=== PATIENT | female | born 1940 | race Caucasian/White ===

== ENCOUNTER 2017-09-17 12:10 | Observation (INO) | payer MEDICARE, SELFPAY ==
[2017-09-17] VITALS (12 sets, daily range): BP systolic 113–155; BP diastolic 55–91; PULSE 69–92; RESP 16–18; TEMP 36.2–37.4; O2SAT 88–99; BMI 42.4
--- NOTE | 2017-09-17 | THYROID_PTH ---
PATIENT: PAULINO JASON LOC: MS3 U#:[id number] AGE/SX: 77/F ROOM: [facility] [place] RE09/17/[address]: Dr. Jesu Tanner MD : 1940 BED: 1 DIS: 09/18/2017 SPEC #: [id number] RECD: 09/17/17 11:02 STATUS: DALIA REShruthi #: [id number] HOOD: 09/17/17 00:[address]: Jesu Tanner DEPT: SURGICAL PATHOLOGY RECD BY: Pia Mccartney ENTERED: 09/17/17 12:08 SP TYPE: THYROID OTHR DR: Out of Town Doctor Tissues: A - Thyroid gland, NOS B - Thyroid gland, NOS Procedures: Gen Path Consultation (on slides) Frozen Section (charge) Surgery Specimen Level V HEADER OPERATION: Completion thyroidectomy including substernal component PRE-OP DIAGNOSIS: Multinodular goiter TISSUE SUBMITTED: A ? Right thyroid lobe including substernal component sent for FS, B ? Left thyroid lobe FROZEN SECTION DIAGNOSIS A. Right thyroid, lobectomy: Colloid nodules with focal adenomatoid change. AM:juanita 09/17/17 Case has been reviewed in consultation with Dr. Fonseca who concurs with the above diagnosis. IDC:LYNDSEY MICROSCOPIC DIAGNOSIS A. Right thyroid, lobectomy: Colloid nodules (4 cm in greatest dimension). 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 B. Left thyroid lobe, lobectomy: Colloid nodules (4 cm in greatest dimension). Parathyroid tissue fragments (8 mm in greatest dimension). AM: 09/24/17 COMMENT A. This case was seen in consultation with Dr. Andrei Bill of [email or web address] who concurs with the above diagnosis. Thyroid tissue sections show well circumscribed follicular neoplasm with nuclear enlargement, crowding, elongation, irregular contours and grooves. There is no evidence of capsular or vascular invasion. The recommended management of this neoplasm is conservative and believed that tumor excision is sufficient. The neoplasm is circumscribed and does not invade the pseudocapsule surrounding it. The complete consultative report is viewable in patient?s EMR. B. Two microscopic foci and one macroscopic focus of parathyroid tissue are identified in the sections of the left thyroid lobe. Clinical correlation is suggested. Case has been reviewed in consultation with Dr. Fonseca who concurs with the above diagnosis. IDC:LYNDSEY MICROSCOPIC DESCRIPTION Slides are reviewed. GROSS DESCRIPTION A - Received fresh for frozen section consultation labeled with the patient's name is a specimen designated right thyroid lobe including substernal component. The specimen consists of three irregular fragments of rubbery light camacho to reddish-camacho soft tissue. The fragments in aggregate weigh 106.4 gm. One of the mechanical research engineer camacho lobulated fragments measure 6.5 x 4.5 x 2.5 cm and is inked in red ink. The second similar fragment measures 6 x 5.5 x 3 cm and is inked in green ink. The largest fragment consists of portions of thyroid and nodular soft tissue measuring 8.5 x 4.5 x 2.5 cm. This fragment is inked in blue ink. Serial sections of all three fragments reveal light camacho, gelatinous cut surfaces. The nodularities range in size from 0.6 to 6 cm in greatest dimension. Anger Control Counselor sections from each fragment (total of three) are submitted for frozen section consultation. Additional sections from each nodule are submitted in cassettes 4-12. / AM:juanita 09/17/17 B - Received in fixative is one container labeled with the patient's name and designated left lobe of thyroid. The specimen consists of five irregular fragments of rubbery to gelatinous, camacho soft tissue ranging in size from 0.5 to 4 cm. The specimen has an aggregate weight of 26.5 gm. The two smaller fragments are submitted entirely in cassette 1. The next largest fragment is sectioned and submitted in cassette 2. Anger Control Counselor sections from the third largest fragment are submitted in cassettes 3-6. Serial sections of all fragments reveal a gelatinous, light camacho cut surface without areas of cyst formation, necrosis or hemorrhage. / AM:juanita 09/20/17 TC:1 CPT: 30237 x2, 15121, 40762 x2
--- NOTE | 2017-09-17 | IMM_PTH ---
PATIENT: PAULINO JASON LOC: MS3 U#:[id number] AGE/SX: 77/F ROOM: [facility] RE09/17/[address]: Dr. Jesu Tanner MD : 1940 BED: 1 DIS: 09/18/2017 SPEC #: [id number] RECD: 09/20/17 13:47 STATUS: DALIA REQ #: [id number] HOOD: 09/17/17 00:[address]: Jesu Tanner DEPT: IMMUNOHISTOCHEMISTRY RECD BY: Pai Mccartney ENTERED: 09/20/17 13:48 SP TYPE: IMMUNO OTHR DR: Out of [facility] Doctor Tissues: A - Thyroid gland, NOS Procedures: CK19 (add) GAL-3 (add) HBME (add) CD56 (initial) PHYSICIAN & INSTITUTION [place] [id number] SPECIMEN INFORMATION: Tissue Source: A ? Right thyroid lobe Clinical Info: Multinodular goiter Specimen Number: [id number] CPT code: 59432, 17568 x3 METHODOLOGY: Deparaffinized sections of prefer/formalin-fixed tissue or PAP/DQ stained slides are incubated with monoclonal/polyclonal antibodies/oligonucleotide probes. Localization is made via biotin free immunoperoxidase method. Appropriate controls are performed and reacted as expected. Results on target cell population are indicated in the following table: RESULTS: ANTIBODY / CLONE RESULT Block A5 CD56 (123C3.D5) positive HBME1 (HBME-1) positive GAL3 (9C4) negative CK19 (A53-B/A2.26) positive These tests were developed and their performance characteristics determined by [facility]. They may not have been cleared or approved by the U.S. Food and Drug Administration. The FDA has determined that such clearance or approval is not necessary. INTERPRETATION: A. 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 AM:juanita 09/24/17 Comment: Case is reviewed in consultation with Dr. Bill of [facility] who agrees with the diagnosis.
--- NOTE | 2017-09-17 07:02 | EKG12_ITS ---
Test Reason : PREOP Blood Pressure : / mmHG Vent. Rate : 070 BPM Atrial Rate : 070 BPM P-R Int : 176 ms QRS Dur : 110 ms QT Int : 424 ms P-R-T Axes : -13 -20 011 degrees QTc Int : 457 ms Sinus rhythm with occasional PVCs Leftward axis Confirmed by ARUNA KRUEGER, YENY ([id number]), sound editor MARCELINO RAY ([id number]) on 09/21/2017 3:51:55 PM Referred By: Jesu Tanner Confirmed By:YENY VALDOVINOS MD
[2017-09-17 07:38] LABS: Hematocrit 35.9 % (37-47); Hemoglobin 11.5 g/dl (12.0-15.0); Mean Corpuscular Hgb 31.7 pg (27.0-32.0); Mean Corpuscular Volume 98.9 fL (81-99); Mean Platelet Vol. 10.6 fl (6.2-12.0); Platelet Count 184 K/mm3 (150-450); RBC Distribution Width CV 15.7 % (11.6-14.6); RBC Distribution Width SD 54.5 fl (35.1-43.9); Red Blood Count 3.63 M/mm3 (4.2-5.4); White Blood Count 4.2 K/mm3 (4.4-11.0)
[2017-09-17 07:43] LABS: Scan Indicated on CBC? Y/N NO
[2017-09-17 07:46] LABS: Anion Gap 8 (5-15); BUN 11 mg/dL (7-18); BUN/Creat Ratio 14.7 RATIO (10-20); Calcium,Total 9.1 mg/dL (8.5-10.1); Chloride 108 mmol/L (98-107); Creatinine, Serum 0.75 mg/dL (0.55-1.02); EST Glomerular Filtration Rate 80 mL/min (>60); Est Glom Filt Rate - Afr Amer 97 mL/min (>60); Estimated Creatinine Clearance 39.59 ml/min; Glucose 104 mg/dL (74-106); Potassium 3.6 mmol/L (3.5-5.1); Sodium Level 141 mmol/L (136-145); Thyroid Stim Hormone (TSH) 0.94 uIU/mL (0.358-3.74)
--- NOTE | 2017-09-17 12:02 | PCM.OPRPT ---
Problem List (1) Multinodular goiter Status: Chronic Report of Operation Date of Procedure: 09/17/17 Post-Operative Diagnosis: same Surgery/Procedure Performed:: Completion thyroidectomy including substernal component Description of Surgical Findings:: Sabas is a 77-year-old female presents evaluation of enlarging thyroid nodule. Needle biopsy in the office showed follicular cells without colloid suggesting a adenoma given the report of significant increase in size over the last year as well as large goitrous thyroid with previous resection and recurrence of large mass-effect excision for definitive evaluation as well as relief of any compression symptoms were was offered. The patient was eager to proceed. The risks, alternatives, potential benefits, and complications were discussed at length and any questions answered to the patient and/or caregiver's satisfaction. Witnessed informed consent was obtained in the office, and the patient and/or caregiver was agreeable to proceed. Procedure went as follows: The patient was identified in the preoperative holding and brought to the operating room, placed under general anesthesia and intubated. The neuro monitoring electrodes were then placed in the chest and confirmed to be operational in accordance with the frankfurter inspector's directions to allow for recurrent laryngeal nerve monitoring. The neck was then prepped and draped in usual sterile fashion and the planned skin incision in marked 2 finger breaths above the sternal notch with a marking pen at the previous thyroidectomy scar line. The incisional line was then injected with 1% lidocaine with 100,000 epinephrine for a total of 5 cc. After allowing for vasoconstriction, a 15 blade scalpel was used to make an incision 8 cm in length through the skin and subcutaneous tissues and platysma. A subplatysmal flap was then elevated superiorly and inferiorly to allow placement of the self-retaining thyroid retractor. The strap muscles were then divided in the midline and beginning on the massive, multilobulated right thyroid lobe dissected in a sub-capsular fashion. This extended below the clavicle and was bluntly dissected free and delivered into the neck. The inferior, middle, and superior thyroid vessels were individually clamped and ligated with a combination of 3-0 silk sutures and vascular clips. The parathyroid glands were identified along the inferior vascular pedicle and preserved the recurrent laryngeal nerve was also identified and followed to its nerve entry point and the thyroid gland dissected free of its attachments to the trachea at Broyle's ligament. This was then transected at the isthmus and sent for pathologic evaluation. Attention was then turned to the contralateral side where similar dissection was carried out and completed again with preservation of the laryngeal nerve and parathyroid glands. The wound bed was then irrigated saline solution and examined for sites of bleeding. No significant bleeding was encountered and #7 flat drains were then placed into each tracheoesophageal groove and brought out through a separate stab incision in the neck and secured with 3-0 silk sutures. The strap muscles were then re-approximated in the midline with a running 3-0 Vicryl suture followed by interrupted 3-0 Vicryl sutures to close the platysma and subcutaneous tissues. A 5-0 Monocryl was then used to close the skin followed by Steri-Strips completing the procedure. An NG tube was then placed to decompress the stomach and the patient returned to anesthesia, revived and extubated having tolerated the procedure well. Type of Anesthesia:: General Anesthesiologist: Jesu Vines Specimen's removed: thyroid goiter Drains: #7 flat CECILE drains Estimated Blood Loss (mL): 350 mL Fluids Replaced: 2000 mL Grafts/Implants Used: none - Complications none - Admit VTE Documentation VTE Present on Admission: No VTE Mechan Device Prophylaxis: SCD's VTE Pharm Prophylaxis ordered?: No
[2017-09-17 13:04] LABS: Calcium,Total 8.4 mg/dL (8.5-10.1)
[2017-09-17] MEDS: Acetaminophen 325 MG Tablet 650 MG PO (14:35)
[2017-09-17] MEDS: Lactated Ringers 1,000 ML 120 ML IV (16:47)
[2017-09-18] MEDS: Ibuprofen 400 MG Tablet PO ×4 (00:37→18:10)
[2017-09-18] MEDS: BENZOCAINE/MENTHOL 1 LOZENGE MUCOUS MEM (00:38)
[2017-09-18] MEDS: Lactated Ringers 1,000 ML 120 ML IV (00:38)
[2017-09-18] MEDS: Levothyroxine 125 MCG Tablet PO (05:24)
[2017-09-18 05:26] VITALS: BP 133/62; PULSE 74; RESP 18; TEMP 37.2; O2SAT 94
[2017-09-18 07:02] LABS: Calcium,Total 7.9 mg/dL (8.5-10.1)
--- NOTE | 2017-09-18 09:17 | PCM.PN.SRG ---
Subjective: Patient states she is feeling well, no pain, no numbness or tingling of face or fingers and toes. Objective: Well appearing, normal voicing with negative Chvostek's sign. Serousanguinous drain output overnight. - Physical Exam General: Alert, Oriented x3, Cooperative, No apparent distress HEENT: Atraumatic, PERRLA, EOMI, Normocephalic Oral: Moist Mucosa Neck: Supple, - - incision intact without redness, swelling or discharge Abdomen: Non Tender, Non-Distended Extremities: No edema Skin: No rashes Neurological: Neuro grossly intact Psych/Mental Status: Normal Affect, Alert and oriented to time, place, person, mood and affect Vital Signs Temp Pulse Resp BP Pulse Ox 99.0 F 74 18 133/62 H 94 09/18/17 05:26 09/18/17 05:26 09/18/17 05:26 09/18/17 05:26 09/18/17 05:26 Oxygen Delivery Method Room Air Weight: 110.3 kg Body Mass Index (BMI) 42.4 Intake and Output for Last 24 Hours 09/16/17 09/17/17 09/18/17 23:59 23:59 23:59 Intake Total 3319 / 3319 1784 / 1784 Output Total 1615 / 1615 640 / 640 Balance 1704 / 1704 1144 / 1144 Laboratory Tests Past 24 Hrs 09/17/17 09/18/17 12:45 06:00 Calcium 8.4 L 7.9 L Medical Necessity - Tobacco Use Smoking Status: Never smoker Assessment/Plan Doing well after total thyroidectomy with substernal extent. Drain output diminishing but too high for removal. calcium trending downward, but patient asymptomatic. Observation throughout the day with hope of discharge this evening if drain output continues to diminish and calcium stabilizes.
[2017-09-18 09:26] VITALS: BP 153/80; PULSE 73; RESP 18; TEMP 37.6; O2SAT 95
[2017-09-18 09:55] VITALS: PULSE 88
[2017-09-18] MEDS: Acetaminophen 325 MG Tablet 650 MG PO (10:56)
[2017-09-18] MEDS: Calcium Carb/Vitamin D 1 TABLET Tablet PO ×2 (12:45→17:15)
[2017-09-18 15:22] VITALS: BP 130/70; PULSE 67; RESP 18; TEMP 37.6; O2SAT 94
[2017-09-18 16:33] LABS: Calcium,Total 8.2 mg/dL (8.5-10.1)
--- NOTE | 2017-09-18 17:38 | PCM.PROGNOTE ---
Subjective: Feeling well, no pain, no numbness or tingling. - Physical Exam General: Alert, Oriented x3 HEENT: Atraumatic, PERRLA, EOMI Oral: Moist Mucosa Neck: Supple, - - incision dry, no swelling or discharge Neurological: Neuro grossly intact Psych/Mental Status: Alert and oriented to time, place, person, mood and affect Vital Signs Temp Pulse Resp BP Pulse Ox 99.7 F H 67 18 130/70 H 94 09/18/17 15:22 09/18/17 15:22 09/18/17 15:22 09/18/17 15:22 09/18/17 15:22 Oxygen Delivery Method Room Air Weight: 110.3 kg Body Mass Index (BMI) 42.4 Intake and Output for Last 24 Hours 09/16/17 09/17/17 09/18/17 23:59 23:59 23:59 Intake Total 3319 / 3319 1954 / 1954 Output Total 1615 / 1615 1240 / 1240 Balance 1704 / 1704 714 / 714 Laboratory Tests Past 24 Hrs 09/18/17 09/18/17 06:00 16:00 Calcium 7.9 L 8.2 L Medical Necessity - Tobacco Use Smoking Status: Never smoker Assessment/Plan Doing well after total thyroidectomy with substernal extent. Drain output minimal since this morning, and drains removed at bedside. Calcium level recovering and patient remains asymptomatic. Discharge to home with continues oral calcium supplementation. Signs and symptoms of low calcium reviewed.
--- NOTE | 2017-09-18 18:14 | NURSING ---
JUAN CECILE DRAINS DC'ED BU WHEN HE VISITED. NECK INCISION ANANDA W/STERI-STRIPS INTACT.
[2017-09-18 18:39] VITALS: BP 131/51; PULSE 78; RESP 16; TEMP 37.2; O2SAT 93
== END 2017-09-18 18:48 | disposition home or self-care (01) ==
LOC: MS3 09-18 05:05 → SDC 09-21 08:26
PROVIDERS: Anesthesiology; Admitting Provider Otolaryngology; Visit Provider Otolaryngology
PROC: (CPT 60240; principal; 2017-09-17 08:45)
DX: E04.2 Nontoxic multinodular goiter (principal); R32 Unspecified urinary incontinence; Z79.82 Long term (current) use of aspirin; Z79.899 Other long term (current) drug therapy; I10 Essential (primary) hypertension; E78.00 Pure hypercholesterolemia, unspecified; Z87.891 Personal history of nicotine dependence; M19.90 Unspecified osteoarthritis, unspecified site
CPT/HCPCS: 60240; 36415; 80048; 82310; 84443; 85027; 88307; 88325; 88331; 88341; 88342; 93005; 96360; 96361; 97802; 99218; J7120; G0378; G0379; J2405

== ENCOUNTER → 2017-11-02 12:07 | Outpatient (CLI) | payer MEDICARE, SELFPAY ==
--- NOTE | 2017-11-02 12:07 | DT_ITS ---
This patient was seen during an EMR downtime November 01, 2017 - November 08, 2017. This patient may have a combination of paper and electronic documentation or all paper documentation. All documentation is viewable within the e-chart portion of [employer] for each patient visit.
[2017-11-08 17:14] LABS: Calcium,Total 7.7 mg/dL (8.5-10.1); Thyroid Stim Hormone (TSH) 2.48 uIU/mL (0.358-3.74)
== END ==
PROVIDERS: Visit Provider Otolaryngology
DX: E89.0 Postprocedural hypothyroidism (principal); E83.51 Hypocalcemia
CPT/HCPCS: 36415; 82310; 84443

== ENCOUNTER 2018-06-24 07:31 | Day surgery (SDC) | payer MEDICARE, SELFPAY ==
--- NOTE | 2018-06-24 07:55 | EKG12_ITS ---
Test Reason : PRE-OP Blood Pressure : / mmHG Vent. Rate : 077 BPM Atrial Rate : 077 BPM P-R Int : 172 ms QRS Dur : 112 ms QT Int : 416 ms P-R-T Axes : -01 -22 035 degrees QTc Int : 470 ms Normal sinus rhythm Leftward axis Confirmed by ARUNA KRUEGER, YENY ([id number]), manager editorial MARCELINO RAY ([id number]) on 06/28/2018 3:59:14 PM Referred By: Jesu Tanner Confirmed By:YENY VALDOVINOS MD
[2018-06-24 08:18] VITALS: BP 98/79; PULSE 72; RESP 18; TEMP 36.6; O2SAT 96; BMI 45.4
[2018-06-24 08:30] LABS: Hematocrit 28.1 % (37-47); Hemoglobin 8.9 g/dl (12.0-15.0); Mean Corp Hgb Conc 31.7 g/gl (32-36); Mean Corpuscular Volume 97.9 fL (81-99); Mean Platelet Vol. 10.1 fl (6.2-12.0); Platelet Count 167 K/mm3 (150-450); Red Blood Count 2.87 M/mm3 (4.2-5.4); White Blood Count 4.3 K/mm3 (4.4-11.0)
[2018-06-24 08:31] LABS: Scan Indicated on CBC? Y/N NO
[2018-06-24 08:35] LABS: Anion Gap 10 (5-15); BUN 20 mg/dL (7-18); BUN/Creat Ratio 23.4 RATIO (10-20); Calcium,Total 8.5 mg/dL (8.5-10.1); Chloride 108 mmol/L (98-107); Creatinine, Serum 0.86 mg/dL (0.55-1.02); EST Glomerular Filtration Rate 68 mL/min (>60); Est Glom Filt Rate - Afr Amer 83 mL/min (>60); Estimated Creatinine Clearance 39.35 ml/min; Glucose 105 mg/dL (74-106); Potassium 3.5 mmol/L (3.5-5.1); Sodium Level 142 mmol/L (136-145)
--- NOTE | 2018-06-24 10:29 | PCM.OPRPT ---
Problem List (1) Paralysis of vocal cords and larynx, unilateral Status: Chronic Report of Operation Date of Procedure: 06/24/18 Pre-Operative Diagnosis: Paralysis of right vocal fold Post-Operative Diagnosis: same Surgery/Procedure Performed:: Medialization thyroplasty of right vocal fold with 13 mm Disha laryngeal prosthesis Description of Surgical Findings:: Sabas is a 78-year-old female with a right vocal fold paralysis following thyroidectomy for a massive multinodular goiter. Serial observation and a course of speech therapy failed to result in improvement of course of voicing and the above procedure was offered for her vocal support. The risks, alternatives, potential benefits, and complications were discussed at length and any questions answered to the patient and/or caregiver's satisfaction. Witnessed informed consent was obtained in the office, and the patient and/or caregiver was agreeable to proceed. Procedure went as follows: The patient was identified in the preoperative holding in the right neck site marked over the laryngeal cartilage in accordance with the patient's history physical exam and chart notes. The patient was then brought to the operating room where she is placed on the operating room table and positioned in conscious sedation induced. The skin of the neck on the right side was then prepped and draped in usual fashion after injecting the planned incision site with 3 cc of 1% lidocaine with 100,000 epinephrine. After lying for vasoconstriction, a 5 cm incision was made over the thyroid cartilage extending 1 cm past the midline on the right side. Dissection was then carried out through the skin platysma and subcutaneous tissue. The strap muscles were then divided in the thyroid cartilage exposed. The midline was then marked horizontally in an inferior cartilaginous window was then planned 5 mm from the anterior commissure 6 x 11 mm in size. This was then sharply with a 15 blade scalpel and using a freer elevator the cartilage window was then removed. The general perichondrium was then incised with a 15 blade scalpel leaving this attached anteriorly which allowed placement of the 6 x 13 mm Disha titanium laryngeal medialization prosthesis. The patient was then revived to allow for phonation to financial solutions advisor placement of the implant. Once appropriate medialization was achieved the implant was then secured within the cartilaginous window in the overlying soft tissues then closed with interrupted 3-0 Vicryl sutures to close the space. The platysma and subcutaneous tissues were then additionally closed followed by a running 5-0 Monocryl suture to the skin. Franklin-Strips were then applied completing the procedure. The patient was then returned to anesthesia and taken to recovery having tolerated the procedure well. There is noted to be some mild persistent hoarseness of voice which is attributed to her significant oral dryness and positioning with improved pitch and volume noted with ongoing improvement anticipated. Type of Anesthesia:: Local MAC Anesthesiologist: Kimani Barbour Special Medications: none Specimen's removed: none Drains: none Estimated Blood Loss (mL): 0 mL Fluids Replaced: 500 mL Grafts/Implants Used: Disha 6x13 mm laryngeal vocal prosthesis - Complications none - Admit VTE Documentation VTE Present on Admission: No VTE Mechan Device Prophylaxis: SCD's VTE Pharm Prophylaxis ordered?: No
[2018-06-24 10:33] VITALS: BP 102/58; BP 98/79; PULSE 60; RESP 16; TEMP 36.2; O2SAT 93
--- NOTE | 2018-06-24 10:35 | OP.PCM_ITS ---
Problem List (1) Paralysis of vocal cords and larynx, unilateral Status: Chronic Report of Operation Date of Procedure: 06/24/18 Pre-Operative Diagnosis: Paralysis of right vocal fold Post-Operative Diagnosis: same Surgery/Procedure Performed:: Medialization thyroplasty of right vocal fold with 13 mm Disha laryngeal prosthesis Description of Surgical Findings:: Sabas is a 78-year-old female with a right vocal fold paralysis following thyroidectomy for a massive multinodular goiter. Serial observation and a course of speech therapy failed to result in improvement of course of voicing and the above procedure was offered for her vocal support. The risks, alternatives, potential benefits, and complications were discussed at length and any questions answered to the patient and/or caregiver's satisfaction. Witnessed informed consent was obtained in the office, and the patient and/or caregiver was agreeable to proceed. Procedure went as follows: The patient was identified in the preoperative holding in the right neck site marked over the laryngeal cartilage in accordance with the patient's history physical exam and chart notes. The patient was then brought to the operating room where she is placed on the operating room table and positioned in conscious sedation induced. The skin of the neck on the right side was then prepped and draped in usual fashion after injecting the planned incision site with 3 cc of 1% lidocaine with 100,000 epinephrine. After lying for vasoconstriction, a 5 cm incision was made over the thyroid cartilage extending 1 cm past the midline on the right side. Dissection was then carried out through the skin platysma and subcutaneous tissue. The strap muscles were then divided in the thyroid cartilage exposed. The midline was then marked h orizontally in an inferior cartilaginous window was then planned 5 mm from the anterior commissure 6 x 11 mm in size. This was then sharply with a 15 blade scalpel and using a freer elevator the cartilage window was then removed. The general perichondrium was then incised with a 15 blade scalpel leaving this attached anteriorly which allowed placement of the 6 x 13 mm Disha titanium laryngeal medialization prosthesis. The patient was then revived to allow for phonation to sheet rock hanger placement of the implant. Once appropriate medialization was achieved the implant was then secured within the cartilaginous window in the overlying soft tissues then closed with interrupted 3-0 Vicryl sutures to close the space. The platysma and subcutaneous tissues were then additionally closed followed by a running 5-0 Monocryl suture to the skin. Steri-Strips were then applied completing the procedure. The patient was then returned to anesthesia and taken to recovery having tolerated the procedure well. There is noted to be some mild persistent hoarseness of voice which is attributed to her significant oral dryness and positioning with improved pitch and volume noted with ongoing improvement anticipated. Type of Anesthesia:: Local MAC Anesthesiologist: Kimani Barbour Special Medications: none Specimen's removed: none Drains: none Estimated Blood Loss (mL): 0 mL Fluids Replaced: 500 mL Grafts/Implants Used: Disha 6x13 mm laryngeal vocal prosthesis - Complications none - Admit VTE Documentation VTE Present on Admission: No VTE Mechan Device Prophylaxis: SCD's VTE Pharm Prophylaxis ordered?: No
[2018-06-24 10:38] VITALS: BP 108/67; BP 98/79; PULSE 60; RESP 18; O2SAT 98
--- NOTE | 2018-06-24 10:38 | DCINST_ITS ---
- Discharge Diagnoses Current Active Problems: Current Active and Chronic Problems Paralysis of vocal cords and larynx, unilateral (Chronic) You will use the following diet at home:: No restrictions Your food should be the consistency of: Regular Discharge Activity: Return to Normal Activity, May not drive while taking narcotic pain medications. Call your doctor if your incision/area has: Increased Pain/ Swelling, Increased Redness, Swelling at the incision site Call your doctor if you observe: Fever of 101 or Higher, Shortness of breath, Uncontrolled pain Allergies/Adverse Reactions: Allergies Sulfa (Sulfonamide Antibiotics) Allergy (Verified 06/17/18 12:59) Unknown Medications to take at Discharge A/C/E/Zinc Ox/Cupric Ox/Lutein [Macuvite Eye Care Tablet] 1 each PO DAILY 09/15/17 Amlodipine [Norvasc] 10 mg PO QHS 09/15/17 Aspirin [Aspir-Low] 81 mg PO DAILY 09/15/17 Atorvastatin Calcium [Lipitor] 20 mg PO QHS 09/15/17 Montelukast Sodium [Singulair] 10 mg PO DAILY 09/15/17 Quinapril HCl [Accupril] 40 mg PO DAILY 09/15/17 Acetaminophen [Tylenol Tablet] 650 mg PO Q4H PRN PRN tablet 09/18/17 Calcitriol 0.25 mcg PO DAILY 06/17/18 Calcium Carb/Vitamin D [Os-Jonas 500MG + D] 1 tablet PO DAILY 06/17/18 Levothyroxine [Synthroid] 127 mcg PO DAILY@0600 06/17/18 Primary Care Physician: [facility] ,Out of [Primary Care Provider] - Test Results: Test results from this visit will be discussed in further detail at your follow- up appointment, if applicable. Please Follow Up With: Jesu Tanner MD When: 2 weeks
[2018-06-24 10:43] VITALS: BP 105/66; BP 98/79; PULSE 58; RESP 18; O2SAT 97
[2018-06-24 10:44] VITALS: BP 115/66; BP 98/79; PULSE 62; RESP 18; TEMP 36.7; O2SAT 95
[2018-06-24 11:32] VITALS: BP 98/79
== END 2018-06-24 11:40 | disposition home or self-care (01) ==
LOC: SDC 07:33 → AC 07:35
PROVIDERS: Anesthesiology; Referring Provider Otolaryngology; Visit Provider Otolaryngology
PROC: (CPT 31591; principal; 2018-06-24 08:50)
DX: J38.01 Paralysis of vocal cords and larynx, unilateral (principal); F32.9 Major depressive disorder, single episode, unspecified; I10 Essential (primary) hypertension; E78.00 Pure hypercholesterolemia, unspecified; Z87.891 Personal history of nicotine dependence; E07.9 Disorder of thyroid, unspecified
CPT/HCPCS: 00320; 31599; 80048; 85027; 93005; J7120; J2405